=== PATIENT | female | born 1970 | race Caucasian/White ===

== ENCOUNTER 2021-11-30 22:21 | Observation (INO) ==
[2021-12-01] MEDS ORDERED: Ondansetron 4 MG/2 ML VIAL IVP PRN ×3 (05:04→14:17)
[2021-12-01] MEDS ORDERED: Melatonin 3 MG TABLET PO PRN ×2 (05:04→14:17)
[2021-12-01] MEDS ORDERED: Naloxone 0.4 MG/ML INJ IVP PRN ×2 (05:04→14:17)
[2021-12-01] MEDS ORDERED: 0.9 % Sodium Chloride 1,000 ML IVC SCH ×2 (05:15→14:17)
[2021-12-01 06:19] LABS: Hematocrit 37.6 % (35.3-44.9); Hemoglobin 12.8 g/dL (11.5-15.4); Mean Corpuscular Hemoglobin 30.9 pg (28.0-33.3); Mean Corpuscular Volume 90.8 fL (83.0-100.0); Mean Platelet Volume 10.2 fL (9.4-12.4); Platelet Count 225 K/mcL (140-400); Red Blood Count 4.14 M/mcL (3.82-4.97); Red Cell Distribution Width 12.5 % (11.5-14.5); White Blood Count 7.8 K/mcL (4.3-11.1)
[2021-12-01 06:27] LABS: INR 1.2
[2021-12-01 06:30] LABS: Activated Partial Thrombo Time 32.6 Seconds (26.0-36.0)
[2021-12-01 06:35] LABS: BUN/Creatinine Ratio 13 (6-26); Blood Urea Nitrogen 10 mg/dL (6-20); Calcium 8.6 mg/dL (8.6-10.3); Carbon Dioxide 24 mEq/L (23-29); Chloride 105 mEq/L (98-107); Glucose 106 mg/dL (70-105); Osmolality,Calculated 279 (280-300); Potassium 3.6 mEq/L (3.5-5.1); Sodium 135 mEq/L (136-145); eGFR For African Americans > 60 (> 60); eGFR For Non-African Americans > 60 (> 60)
[2021-12-01] MEDS ORDERED: cefTRIAXone 1,000 MG in 0.9 % Sodium Chloride Mini Bag 100 ML IVPB SCH ×2 (09:00→21:00)
[2021-12-01] MEDS ORDERED: *HR* OxyCODONE Immed Rel 5 MG TABLET PO PRN (11:30)
[2021-12-01] MEDS ORDERED: *HR* HYDROmorphone PF 0.5 MG/0.5 ML SYRINGE IVP PRN (11:30)
[2021-12-01] MEDS ORDERED: *HR* Propofol 200 MG/20 ML VIAL IVP ONE (11:33)
[2021-12-01] MEDS ORDERED: *HR* FentaNYL (PF) 100 MCG/2 ML VIAL ONE (11:33)
[2021-12-01] MEDS ORDERED: *HR* Midazolam HCl 2 MG/2 ML VIAL ONE (11:33)
[2021-12-01] MEDS ORDERED: Ondansetron 4 MG/2 ML VIAL ONE (11:37)
[2021-12-01] MEDS ORDERED: Lidocaine -MPF 2% 5 ML VIAL ONE (11:37)
[2021-12-01] MEDS ORDERED: EPHEDrine 50 MG/ML VIAL ONE (12:23)
[2021-12-01] MEDS ORDERED: Ondansetron 4 MG/2 ML VIAL IVP ONE (13:23)
[2021-12-01] MEDS ORDERED: Acetaminophen IV 1,000 MG/100 ML BAG IVPB ONE (13:55)
[2021-12-01] MEDS ORDERED: *HR* Belladonna Alkaloids/Opium 30 MG RECTAL SUPPOSITORY RC PRN (14:17)
[2021-12-01 19:27] VITALS: BP 118/74; PULSE 95; TEMP 98.8; O2SAT 97
== END 2021-12-01 22:05 | disposition home or self-care (01) ==
LOC: 3BNU
PROVIDERS: ADMIT Internal Medicine; ATTEND Internal Medicine